=== PATIENT | male | born 1975 | race African-American/Black ===

== ENCOUNTER 2023-08-16 13:14 | Emergency (ER) | payer OTHER ==
[~2023-08-16] VITALS: Ht 180.3 cm; Wt 113.4 kg
[2023-08-16 13:33] VITALS: BP 135/79; PULSE 116; RESP 18; TEMP 97.2; O2SAT 98
[2023-08-16] MEDS: PROCHLORPERAZINE 10 MG/2 ML VIAL IM ONE (15:02)
[2023-08-16] MEDS: KETOROLAC 30 MG/ML VIAL IM ONE (15:03)
[2023-08-16] MEDS: MORPHINE SULFATE 4 MG/ML SYR IM ONE (16:18)
[2023-08-16] MEDS ORDERED: IBUP-2213 PO (17:25)
[2023-08-16 18:20] VITALS: BP 135/53; PULSE 80; RESP 18; TEMP 98.5; O2SAT 97
== END 2023-08-16 18:20 | disposition home or self-care (01) ==
LOC: MED 13:14
DX: G43.909 Migraine, unspecified, not intractable, without status migrainosus (principal); I10 Essential (primary) hypertension; Z88.0 Allergy status to penicillin; Z91.013 Allergy to seafood
CPT/HCPCS: 93005; 96372; 99285; J0780; J1885; J2270; Q0163